=== PATIENT | female | born 1945 | race Caucasian/White ===

== ENCOUNTER → 2016-10-31 | Outpatient (CLI) | payer MEDICARE ==
[~2016-10-31] MED LIST: ATRV10T PO; CYAN10007 PO; GINGKO BILOBA; MULT-608 PO; OMEG1CAP51 PO; VITA100T6 PO
--- NOTE | 2016-10-31 11:16 | Diagnostic Imaging Report ---
Bilateral feet INDICATION: Foot pain. Three views of each foot were obtained. FINDINGS: There is no fracture, dislocation, or acute bony abnormality evident. The previous left foot exam of 03/09/2012 noted a prominent hallux valgus deformity of the first ray. If anything, that deformity is somewhat greater on this exam. There is also an equally prominent hallux valgus deformity of the right first ray. The soft tissues are unremarkable. IMPRESSION: 1. There is no evidence for an acute bony abnormality. 2. There are prominent hallux valgus deformities of both first rays. Dictated by: Dictated on workstation # [id number]
== END ==
LOC: RAD 09:16
PROVIDERS: ATTEND Family Medicine
DX: M21.611 Bunion of right foot (principal); M21.612 Bunion of left foot

== ENCOUNTER → 2017-10-18 | Outpatient (CLI) | payer MEDICARE ==
[~2017-10-18] MED LIST changes: +CATHETER FLUSH 10 ML SYR IV PRN; +REGADENOSON 0.4 MG/5 ML SYR (LEXISCAN) IV ONE
[2017-10-18 10:03] VITALS: BP 152/76
--- NOTE | 2017-10-19 00:02 | STRESS TEST ---
DATE OF SERVICE: 10/18/2017 EXERCISE MYOVIEW STRESS TEST REPORT REFERRING PHYSICIAN: Dr. Motley. INDICATION: Chest pain. Baseline heart rate is 68. Baseline blood pressure 152/76. Baseline EKG is sinus rhythm with no ischemic changes. SUMMARY: The patient was injected with 9.90 mCi of technetium-99 Myoview and the resting images were obtained. Then, the patient started exercising with a baseline heart rate, blood pressure and EKG mentioned above. She was able to exercise for a total of 7 minutes 25 seconds on standard Stephane protocol. With peak exercise level, the patient was injected with 28.6 mCi of technetium-99 Myoview. EKG at the end of the test was showing [address] depression in II, III, aVF, V4, V5 and V6, during recovery, heart rate and blood pressure returned to baseline. EKG returned to baseline. The resting and stress images were reviewed and compared with short axis, horizontal long axis, and vertical long axis views. Review of the images showed typical female pattern with no significant ischemia or infarction. SSS is 3, SDS 3, TID value 1.01. On the gated images, the left ventricle appeared to be normal size with normal contractility, calculated ejection fraction 62%. CONCLUSION: 1. Fair exercise tolerance, a total of 7 minutes 25 seconds on standard Stephane protocol, total of 8.9 METS achieving 100% of maximum expected heart rate. 2. Appropriate heart rate and blood pressure response to exercise returned to baseline during recovery. 3. Typical female pattern with no significant ischemia or infarction on SPECT images. 4. Normal left ventricular size with normal contractility. Calculated ejection fraction 62%. Job ID: [id number] DocumentID: [id number] Dictated Date: 10/18/2017 17:30:46 Sales Ledger Administrator Date: 10/18/2017 23:55:23 Dictated By: DAVID ANTONIO MD
== END ==
LOC: CARD 08:01
PROVIDERS: ATTEND Internal Medicine Cardiovascular Disease
DX: R07.89 Other chest pain (principal); E78.2 Mixed hyperlipidemia; R00.2 Palpitations; E66.9 Obesity, unspecified
CPT/HCPCS: 78452; 93017

== ENCOUNTER → 2017-10-30 | Outpatient (CLI) | payer MEDICARE ==
[~2017-10-30] MED LIST changes: -CATHETER FLUSH 10 ML SYR IV PRN; -REGADENOSON 0.4 MG/5 ML SYR (LEXISCAN) IV ONE
== END ==
LOC: CARD 08:16
PROVIDERS: ATTEND Internal Medicine Cardiovascular Disease
DX: R07.89 Other chest pain (principal); E78.2 Mixed hyperlipidemia; R00.2 Palpitations; E66.9 Obesity, unspecified
CPT/HCPCS: 93306

== ENCOUNTER → 2018-09-17 | Outpatient (CLI) | payer MEDICARE ==
--- NOTE | 2018-09-17 21:12 | Diagnostic Imaging Report ---
INDICATION: Screening. EXAMINATION: Digital mammogram bilateral screening with 3-D tomosynthesis. This study was compared to prior exams of 12/30/2014 and 12/20/2013. At this time, there are no current complaints. The current study was also evaluated with a Computer Aided Detection (CAD) system. FINDINGS: The fibroglandular tissue in both breasts is heterogeneously dense. This does limit the sensitivity of this exam. Overall, there does not appear to have been any significant change when compared to the prior study. No primary or secondary sign of malignancy is noted. IMPRESSION: 1. There is no radiographic evidence for malignancy. 2. The patient should have her annual bilateral screening mammogram on schedule in September of 2019. ACR BI-RADS Category 1: Negative. Result letter will be mailed to the patient. Note: At least 10% of breast cancer is not imaged by mammography. Dictated by: Dictated on workstation # [id number]
== END ==
LOC: RAD 10:20
PROVIDERS: ATTEND Family Medicine
DX: Z12.31 Encounter for screening mammogram for malignant neoplasm of breast (principal)
CPT/HCPCS: 77067

== ENCOUNTER → 2019-05-15 | Outpatient (CLI) | payer MEDICARE ==
[2019-05-15 10:32] LABS: ABSOLUTE RETIC # 105 10e9/L (24-90); BASOPHILS # (AUTO) 0.4 10^3/uL (0.0-0.1); BASOPHILS % (AUTO) 2 % (0-10); EOSINOPHILS # (AUTO) 0.6 10^3/uL (0.0-0.3); EOSINOPHILS % (AUTO) 3 % (0-10); HEMATOCRIT 48 % (35-52); HEMOGLOBIN 15.4 G/DL (11.5-16.0); LYMPHOCYTES # (AUTO) 2.5 X 10^3 (1.0-4.0); LYMPHOCYTES % (AUTO) 15 % (12-44); MEAN CORPUSCULAR HEMOGLOBIN 24 PG (25-34); MEAN CORPUSCULAR HGB CONC 32 G/DL (32-36); MEAN CORPUSCULAR VOLUME 75 FL (80-99); MEAN PLATELET VOLUME 9.5 FL (7.4-10.4); MONOCYTES # (AUTO) 1.2 X 10^3 (0.0-1.0); MONOCYTES % (AUTO) 7 % (0-12); NEUTROPHILS % (AUTO) 72 % (42-75); RED CELL DISTRIBUTION WIDTH 18.7 % (10.0-14.5); RETICULOCYTE % 1.63 % (0.50-2.40); WHITE BLOOD COUNT 16.6 10^3/uL (4.3-11.0)
[2019-05-15 10:40] LABS: PLATELET COUNT 1339 10^3/uL (130-400)
[2019-05-15 12:45] LABS: ANISOCYTOSIS SLIGHT; BAND NEUTROPHILS 2 %; BASOPHILS % (MANUAL) 1 %; ELLIPT/OVALOCYTES SLIGHT; EOSINOPHILS % (MANUAL) 3 %; LYMPHOCYTES % (MANUAL) 25 %; MICROCYTOSIS SLIGHT; MONOCYTES % (MANUAL) 5 %; NEUTROPHILS % (MANUAL) 64 %
== END ==
LOC: LAB 10:15
PROVIDERS: ATTEND Family Medicine
DX: D72.829 Elevated white blood cell count, unspecified (principal)
CPT/HCPCS: 36415; 85007; 85027; 85045

== ENCOUNTER 2019-05-29 07:00 | Day surgery (SDC) | payer MEDICARE ==
[~2019-05-29] VITALS: Ht 165.1 cm; Wt 68.0 kg
[2019-05-29] VITALS (15 sets, daily range): BP systolic 124–171; BP diastolic 68–98
[2019-05-29 07:50] LABS: ABSOLUTE RETIC # 117 10e9/L (24-90); BASOPHILS # (AUTO) 0.4 10^3/uL (0.0-0.1); BASOPHILS % (AUTO) 2 % (0-10); EOSINOPHILS # (AUTO) 0.6 10^3/uL (0.0-0.3); EOSINOPHILS % (AUTO) 3 % (0-10); HEMATOCRIT 49 % (35-52); LYMPHOCYTES % (AUTO) 11 % (12-44); MEAN CORPUSCULAR HEMOGLOBIN 24 PG (25-34); MEAN CORPUSCULAR HGB CONC 33 G/DL (32-36); MEAN CORPUSCULAR VOLUME 74 FL (80-99); MEAN PLATELET VOLUME 9.9 FL (7.4-10.4); MONOCYTES # (AUTO) 1.4 X 10^3 (0.0-1.0); MONOCYTES % (AUTO) 8 % (0-12); NEUTROPHILS # (AUTO) 13.5 X 10^3 (1.8-7.8); NEUTROPHILS % (AUTO) 76 % (42-75); RETICULOCYTE % 1.79 % (0.50-2.40); WHITE BLOOD COUNT 17.8 10^3/uL (4.3-11.0)
[2019-05-29 07:56] LABS: INR 1.1 (0.8-1.4); PROTHROMBIN TIME PATIENT 14.3 SEC (12.2-14.7)
[2019-05-29 07:58] LABS: PLATELET COUNT 1361 10^3/uL (130-400)
[2019-05-29] MEDS ORDERED: NS IV 1000 ML 1,000 ML IV STA (08:08)
[2019-05-29] MEDS ORDERED: MIDAZOLAM 2 MG/2 ML (VERSED) VIAL IVP ONE (08:15)
[2019-05-29] MEDS ORDERED: fentaNYL INJECTION 100 MCG/2 ML AMP IVP ONE (08:15)
[2019-05-29] MEDS ORDERED: LIDOCAINE 1% INJ 20 ML 20 ML VIAL INJ ONE (08:15)
[2019-05-29 08:26] LABS: BAND NEUTROPHILS 0 %; BASOPHILS % (MANUAL) 0 %; EOSINOPHILS % (MANUAL) 0 %; LYMPHOCYTES % (MANUAL) 13 %; MONOCYTES % (MANUAL) 8 %; NEUTROPHILS % (MANUAL) 79 %
[2019-05-29 08:27] LABS: ANISOCYTOSIS MODERATE
[2019-05-29] MEDS ORDERED: ASPI-999 PO (09:29)
--- NOTE | 2019-05-29 10:00 | NUR ---
TO AMB SURG FROM RADIOLOGY PER CART. ALERT, DENIES COMPLAINTS. DRESSING INTACT TO LOW BACK PROCEDURE SITE. PINPOINT SPOT OF BLOOD AT CENTER OF DRESSING. NO SWELLING AT AREA. PO FLUIDS PROVIDED. CALL LIGHT TO PT.
[2019-05-29] MEDS ORDERED: HYDROcodone/APAP 5 MG/325 MG (LORTAB) TAB PO PRN (10:15)
--- NOTE | 2019-05-29 10:15 | Pre-Op Note & Conscious Sedat ---
Pre-Operative Progress Note H&P Reviewed The H&P was reviewed, patient examined and no changes noted. Date H&P Reviewed: May 29, 2019 Time H&P Reviewed: 08:00 Pre-Op Diagnosis: Elevated WBC's Conscious Sedation Pre-Proced Time 08:00 ASA Score 2 For ASA 3 and 4: Consider anesthesia and medical clearance. Also, for patients with a history of failed moderate sedation consider anesthesia. Airway Lungs Heart ASA score ASA 1: a normal healthy patient ASA 2: a patient with a mild systemic disease (mid diabetes, controlled hypertension, obesity ASA 3: a patient with a severe systemic disease that limits activity (angina, COPD, prior Myocardial infarction) ASA 4: a patient with an incapacitating disease that is a constant threat to life (CHF, renal failure) ASA 5: a moribund patient not expected to survive 24 hrs. (ruptured aneurysm) ASA 6: a declared brain- patient whose organs are being harvested. For emergent operations, add the letter E after the classification Mallampati Classification Grade 2 Sedation Plan Analgesia, Amnesia, Plan communicated to team members, Discussed options with patient/fam, Discussed risks with patient/fam The patient is an appropriate candidate to undergo the planned procedure, sedation, and anesthesia. The patient immediately re-assessed prior to indication. RIMA VALERIO MD May 29, 2019 10:15
--- NOTE | 2019-05-29 10:30 | NUR ---
NO CHANGE IN PROCEDURE SITE ASSESSMENT. TAKING PO FLUIDS WITHOUT PROBLEM. ALERT, CHEERFUL, DENIES COMPLAINTS.
--- NOTE | 2019-05-29 11:00 | NUR ---
NO CHANGE IN SITE/PAIN ASSESSMENTS. HOB ELEVATED TO 30 DEGREES.
--- NOTE | 2019-05-29 11:50 | NUR ---
AT 1145 ASSISTED PT TO SIT UP ON SIDE OF BED FOR PLANNED DISMISSAL. APPROX NICKEL SIZED AREA OF BLOODY DRAINAGE NOTED ON SMALL ISLAND DRESSING AT PROCEDURE SITE, MID LUMBAR AREA. CALL PLACE TO RADIOLOGY AND REPORT TO LEIGH ANN CLEMENT. AT 1150, DRESSING IS SATURATED WITH BLOODY DRAINAGE. DSG REMOVED, PRESSURE HELD AT SITE.
--- NOTE | 2019-05-29 12:00 | NUR ---
LEIGH ANN CLEMENT, FROM RADIOLOGY TO BEDSIDE. SITE CONTINUES TO OOZE WHEN MANUAL PRESSURE RELEASED. URBANO HOLDING MANUAL PRESSURE TO SITE.
--- NOTE | 2019-05-29 13:00 | NUR ---
NO FURTHER BLEEDING AT SITE PER LEIGH ANN CLEMENT. GAUZE AND OPSITE DRESSING APPLIED. WILL MONITOR.
--- NOTE | 2019-05-29 13:03 | NUR ---
DR VALERIO TO BEDSIDE. STATES PT CAN BE DISMISSED PLANNED. DR VALERIO DISCUSSED WITH PT AND PT'S SON THAT THE SITE MAY HAVE SOME BLEEDING AND IF THAT OCCURS, THEY ARE TO HOLD PRESSURE AT THE SITE AND HAVE PT LIE ON HER BACK WITH A FOLDED TOWEL UNDER HER AT THE PROCEDURE SITE TO KEEP PRESSURE THERE. ALSO INSTRUCTED THEM TO COME TO THE EMERGENCY DEPT IF BLEEDING WORSENS OR DOES NOT STOP.
--- NOTE | 2019-05-29 13:25 | NUR ---
BACK UP ON SIDE OF BED FOR DISMISSAL. BLOODY DRAINAGE NOTED AFTER SITTING UP APPROX 2 MINUTES. BACK TO BED AND MANUAL PRESSURE HELD AT SITE. CALL PLACED TO RADIOLOGY, SPOKE WITH LEIGH ANN CLEMENT. STATES SHE AND DR VALERIO ARE IN A PROCEDURE AND WILL CHECK BACK SOON.
--- NOTE | 2019-05-29 13:40 | NUR ---
NO BLEEDING AT SITE AFTER PRESSURE HELD FOR 15 MINUTES. GAUZE AND OPSITE PRESSURE DRESSING APPLIED, ICE PACK TO SITE.
--- NOTE | 2019-05-29 14:05 | NUR ---
HAS NOT HAD ANY BLEEDING AT SITE. RECEIVED CALL FROM RADIOLOGY, URBANO, STATING DR VALERIO IS OK TO PROCEED WITH PT'S DISMISSAL.
--- NOTE | 2019-05-29 14:10 | NUR ---
ASSISTED UP TO BR TO VOID AND BACK TO ROOM. BLOODY DRAINAGE AGAIN NOTED ON 2X2 GAUZE DRESSING AT PROCEDURE SITE. APPROX 2/3 SATURATED. DSG REMOVED AND MANUAL PRESSURE APPLIED.
--- NOTE | 2019-05-29 14:20 | NUR ---
NO BLEEDING AFTER 8 MINUTES OF PRESSURE HELD AT SITE. FOLDED 2X2 GAUZE AND OPSITE DSG APPLIED. ICE PACK TO SITE. CONTACTED DR VALERIO AND URBANO RN BY PHONE. REPORT GIVEN. INSTRUCTED BY DR VALERIO TO APPLY SKIN AFFIX TO SITE, THEN PROCEED WITH DISMISSAL.
--- NOTE | 2019-05-29 14:36 | Diagnostic Imaging Report ---
INDICATION: Elevated white blood cells. TECHNIQUE: The patient was brought to the CT suite and placed on the table in the prone position. Axial imaging through the pelvis was performed to evaluate for an appropriate entry site. The study was performed utilizing conscious sedation with Radiology nursing and constant patient monitoring. The patient was administered a total of 100 ? of fentanyl intravenously and 1.5 mg of Versed intravenously. The total procedure time was 15 minutes. The right posterior pelvis was prepped and draped in the usual sterile fashion. A small amount of 1% lidocaine was utilized for local anesthesia. A bone marrow needle was advanced into the right iliac bone from a posterior approach. The needle was advanced through the cortex into the marrow utilizing a bone marrow drill. Two bone marrow aspirates were obtained. Next, a core biopsy was obtained utilizing the drill. The needle was removed and hemostasis was obtained using manual compression. The patient tolerated the procedure well and left the Department in stable condition. IMPRESSION: Successful CT-guided bone marrow aspiration and biopsy utilizing conscious sedation. Dictated by: Dictated on workstation # [id number]
--- NOTE | 2019-05-29 15:30 | NUR ---
PRESSURE DSG REMOVED AND SKIN AFFIX APPLIED TO SITE BY Rosemarie JIANG RN. PRESSURE DRESSING RE-APPLIED AND PT DISMISSED PER WC WITH FAMILY.
== END 2019-05-29 15:30 | disposition home or self-care (01) ==
LOC: RAD 07:00 → SDC 09:55 → RAD 15:30
PROVIDERS: ATTEND Internal Medicine Hematology & Oncology
DX: C94.6 Myelodysplastic disease, not elsewhere classified (principal); D47.3 Essential (hemorrhagic) thrombocythemia; E78.5 Hyperlipidemia, unspecified; Z79.82 Long term (current) use of aspirin; Z82.49 Family history of ischemic heart disease and other diseases of the circulatory system; Z83.3 Family history of diabetes mellitus; Z87.891 Personal history of nicotine dependence
CPT/HCPCS: 36415; 38222; 77012; 85007; 85027; 85045; 85610; 85730; 99156

== ENCOUNTER 2019-08-09 10:40 | Outpatient (RCR) | payer MEDICARE ==
[2019-05-22 15:19] LABS: BASOPHILS # (AUTO) 0.4 10^3/uL (0.0-0.1); BASOPHILS % (AUTO) 2 % (0-10); EOSINOPHILS # (AUTO) 0.5 10^3/uL (0.0-0.3); EOSINOPHILS % (AUTO) 3 % (0-10); HEMATOCRIT 49 % (35-52); LYMPHOCYTES # (AUTO) 2.4 X 10^3 (1.0-4.0); LYMPHOCYTES % (AUTO) 14 % (12-44); MEAN CORPUSCULAR HEMOGLOBIN 25 PG (25-34); MEAN CORPUSCULAR HGB CONC 33 G/DL (32-36); MEAN CORPUSCULAR VOLUME 75 FL (80-99); MEAN PLATELET VOLUME 10.1 FL (7.4-10.4); MONOCYTES # (AUTO) 1.1 X 10^3 (0.0-1.0); MONOCYTES % (AUTO) 7 % (0-12); NEUTROPHILS # (AUTO) 12.7 X 10^3 (1.8-7.8); NEUTROPHILS % (AUTO) 75 % (42-75); RED CELL DISTRIBUTION WIDTH 18.8 % (10.0-14.5)
[2019-05-22 15:20] LABS: PLATELET COUNT 1378 10^3/uL (130-400)
[2019-05-22 15:32] LABS: PROTHROMBIN TIME PATIENT 13.7 SEC (12.2-14.7)
[2019-06-14 09:43] LABS: BASOPHILS # (AUTO) 0.4 10^3/uL (0.0-0.1); BASOPHILS % (AUTO) 3 % (0-10); EOSINOPHILS # (AUTO) 0.3 10^3/uL (0.0-0.3); EOSINOPHILS % (AUTO) 3 % (0-10); HEMATOCRIT 46 % (35-52); LYMPHOCYTES % (AUTO) 15 % (12-44); MEAN CORPUSCULAR HEMOGLOBIN 25 PG (25-34); MEAN CORPUSCULAR HGB CONC 33 G/DL (32-36); MEAN CORPUSCULAR VOLUME 76 FL (80-99); MEAN PLATELET VOLUME 9.9 FL (7.4-10.4); MONOCYTES % (AUTO) 8 % (0-12); NEUTROPHILS # (AUTO) 9.6 X 10^3 (1.8-7.8); NEUTROPHILS % (AUTO) 72 % (42-75); RED CELL DISTRIBUTION WIDTH 18.7 % (10.0-14.5); WHITE BLOOD COUNT 13.3 10^3/uL (4.3-11.0)
[2019-06-14 09:47] LABS: PLATELET COUNT 1260 10^3/uL (130-400)
[2019-06-21 14:13] LABS: BASOPHILS # (AUTO) 0.2 10^3/uL (0.0-0.1); BASOPHILS % (AUTO) 2 % (0-10); EOSINOPHILS # (AUTO) 0.2 10^3/uL (0.0-0.3); EOSINOPHILS % (AUTO) 2 % (0-10); HEMATOCRIT 46 % (35-52); HEMOGLOBIN 15.4 G/DL (11.5-16.0); LYMPHOCYTES # (AUTO) 1.6 X 10^3 (1.0-4.0); LYMPHOCYTES % (AUTO) 14 % (12-44); MEAN CORPUSCULAR HEMOGLOBIN 26 PG (25-34); MEAN CORPUSCULAR HGB CONC 33 G/DL (32-36); MEAN CORPUSCULAR VOLUME 77 FL (80-99); MEAN PLATELET VOLUME 9.9 FL (7.4-10.4); MONOCYTES # (AUTO) 0.6 X 10^3 (0.0-1.0); MONOCYTES % (AUTO) 5 % (0-12); NEUTROPHILS % (AUTO) 78 % (42-75); PLATELET COUNT 775 10^3/uL (130-400); RED CELL DISTRIBUTION WIDTH 19.8 % (10.0-14.5); WHITE BLOOD COUNT 11.6 10^3/uL (4.3-11.0)
[2019-06-21 14:32] LABS: ALANINE AMINOTRANSFERASE 16 U/L (0-55); ALBUMIN 4.3 GM/DL (3.2-4.5); ALKALINE PHOSPHATASE 57 U/L (40-136); BILIRUBIN,TOTAL 0.5 MG/DL (0.1-1.0); BUN/CREATININE RATIO 25; CALCIUM 9.5 MG/DL (8.5-10.1); CARBON DIOXIDE 23 MMOL/L (21-32); CHLORIDE 106 MMOL/L (98-107); CREATININE SERUM 0.75 MG/DL (0.60-1.30); GFR ESTIMATED > 60; GLUCOSE 110 MG/DL (70-105); POTASSIUM 4.2 MMOL/L (3.6-5.0); SODIUM 139 MMOL/L (135-145); TOTAL PROTEIN 6.5 GM/DL (6.4-8.2)
[2019-07-05 10:36] LABS: BASOPHILS # (AUTO) 0.3 10^3/uL (0.0-0.1); BASOPHILS % (AUTO) 3 % (0-10); EOSINOPHILS # (AUTO) 0.2 10^3/uL (0.0-0.3); EOSINOPHILS % (AUTO) 2 % (0-10); HEMATOCRIT 47 % (35-52); HEMOGLOBIN 15.2 G/DL (11.5-16.0); LYMPHOCYTES # (AUTO) 1.8 X 10^3 (1.0-4.0); LYMPHOCYTES % (AUTO) 18 % (12-44); MEAN CORPUSCULAR HEMOGLOBIN 26 PG (25-34); MEAN CORPUSCULAR HGB CONC 33 G/DL (32-36); MEAN CORPUSCULAR VOLUME 78 FL (80-99); MEAN PLATELET VOLUME 9.7 FL (7.4-10.4); MONOCYTES # (AUTO) 1.1 X 10^3 (0.0-1.0); MONOCYTES % (AUTO) 12 % (0-12); NEUTROPHILS # (AUTO) 6.4 X 10^3 (1.8-7.8); NEUTROPHILS % (AUTO) 65 % (42-75); PLATELET COUNT 854 10^3/uL (130-400); RED CELL DISTRIBUTION WIDTH 21.5 % (10.0-14.5); WHITE BLOOD COUNT 9.8 10^3/uL (4.3-11.0)
[2019-07-19 14:10] LABS: BASOPHILS # (AUTO) 0.3 10^3/uL (0.0-0.1); BASOPHILS % (AUTO) 3 % (0-10); EOSINOPHILS # (AUTO) 0.1 10^3/uL (0.0-0.3); EOSINOPHILS % (AUTO) 1 % (0-10); HEMATOCRIT 46 % (35-52); HEMOGLOBIN 15.3 G/DL (11.5-16.0); LYMPHOCYTES % (AUTO) 17 % (12-44); MEAN CORPUSCULAR HEMOGLOBIN 27 PG (25-34); MEAN CORPUSCULAR HGB CONC 33 G/DL (32-36); MEAN CORPUSCULAR VOLUME 80 FL (80-99); MEAN PLATELET VOLUME 9.4 FL (7.4-10.4); MONOCYTES # (AUTO) 1.1 X 10^3 (0.0-1.0); MONOCYTES % (AUTO) 10 % (0-12); NEUTROPHILS # (AUTO) 7.9 X 10^3 (1.8-7.8); NEUTROPHILS % (AUTO) 69 % (42-75); PLATELET COUNT 645 10^3/uL (130-400); RED CELL DISTRIBUTION WIDTH 22.3 % (10.0-14.5); WHITE BLOOD COUNT 11.5 10^3/uL (4.3-11.0)
[2019-07-19 14:31] LABS: ALANINE AMINOTRANSFERASE 18 U/L (0-55); ALBUMIN 4.4 GM/DL (3.2-4.5); ALKALINE PHOSPHATASE 66 U/L (40-136); BILIRUBIN,TOTAL 0.7 MG/DL (0.1-1.0); BUN/CREATININE RATIO 20; CALCIUM 9.2 MG/DL (8.5-10.1); CARBON DIOXIDE 25 MMOL/L (21-32); CHLORIDE 106 MMOL/L (98-107); CREATININE SERUM 0.66 MG/DL (0.60-1.30); GFR ESTIMATED > 60; GLUCOSE 88 MG/DL (70-105); POTASSIUM 4.2 MMOL/L (3.6-5.0); SODIUM 139 MMOL/L (135-145); TOTAL PROTEIN 6.6 GM/DL (6.4-8.2)
[2019-08-02 11:14] LABS: BASOPHILS # (AUTO) 0.3 10^3/uL (0.0-0.1); BASOPHILS % (AUTO) 3 % (0-10); EOSINOPHILS # (AUTO) 0.1 10^3/uL (0.0-0.3); EOSINOPHILS % (AUTO) 1 % (0-10); HEMATOCRIT 43 % (35-52); LYMPHOCYTES # (AUTO) 1.8 X 10^3 (1.0-4.0); LYMPHOCYTES % (AUTO) 22 % (12-44); MEAN CORPUSCULAR HEMOGLOBIN 27 PG (25-34); MEAN CORPUSCULAR HGB CONC 33 G/DL (32-36); MEAN CORPUSCULAR VOLUME 82 FL (80-99); MEAN PLATELET VOLUME 9.6 FL (7.4-10.4); MONOCYTES # (AUTO) 0.7 X 10^3 (0.0-1.0); MONOCYTES % (AUTO) 9 % (0-12); NEUTROPHILS # (AUTO) 5.2 X 10^3 (1.8-7.8); NEUTROPHILS % (AUTO) 65 % (42-75); PLATELET COUNT 408 10^3/uL (130-400); RED CELL DISTRIBUTION WIDTH 22.9 % (10.0-14.5)
[~2019-08-09 10:40] MED LIST changes: +ASPI-999 PO
[2019-08-09 11:34] LABS: BASOPHILS # (AUTO) 0.2 10^3/uL (0.0-0.1); BASOPHILS % (AUTO) 3 % (0-10); EOSINOPHILS # (AUTO) 0.1 10^3/uL (0.0-0.3); EOSINOPHILS % (AUTO) 1 % (0-10); HEMATOCRIT 45 % (35-52); HEMOGLOBIN 14.8 G/DL (11.5-16.0); LYMPHOCYTES # (AUTO) 1.8 X 10^3 (1.0-4.0); LYMPHOCYTES % (AUTO) 27 % (12-44); MEAN CORPUSCULAR HEMOGLOBIN 27 PG (25-34); MEAN CORPUSCULAR HGB CONC 33 G/DL (32-36); MEAN CORPUSCULAR VOLUME 82 FL (80-99); MEAN PLATELET VOLUME 9.3 FL (7.4-10.4); MONOCYTES # (AUTO) 0.6 X 10^3 (0.0-1.0); MONOCYTES % (AUTO) 9 % (0-12); NEUTROPHILS % (AUTO) 60 % (42-75); PLATELET COUNT 452 10^3/uL (130-400); RED CELL DISTRIBUTION WIDTH 24.3 % (10.0-14.5); WHITE BLOOD COUNT 6.6 10^3/uL (4.3-11.0)
== END 2019-08-20 | disposition home or self-care (01) ==
LOC: ONC 10:40
PROVIDERS: ATTEND Internal Medicine Hematology & Oncology
DX: D72.829 Elevated white blood cell count, unspecified (principal)
CPT/HCPCS: 36415; 80053; 81206; 81270; 81402; 82728; 83540; 85025; 85610; 85730; 99195; 99213; 99214